=== PATIENT | female | born 1995 | race Caucasian/White ===

== ENCOUNTER 2019-01-23 10:42 | Day surgery (SDC) | payer BC ==
[2019-01-22 15:21] VITALS: BMI 26.6
[2019-01-22 15:58] LABS: Hemoglobin 12.3 g/dL (12.0-16.0); Mean Corpuscular HGB CONC 34.1 g/dL (32.0-36.0); Mean Corpuscular Hemoglobin 30.2 pg (27.0-31.0); Mean Corpuscular Volume 88.6 fL (78.0-98.0); Mean Platelet Volume 7.6 fL (7.4-10.4); Platelet Count 260 thou/uL (130-400); RBC Distribution Width 11.1 % (11.5-14.5); Red Blood Cell (RBC) Count 4.08 mill/uL (4.20-5.40); White Blood Cell (WBC) Count 5.9 thou/uL (4.8-10.8)
[2019-01-22 16:05] LABS: BHCG - Serum Negative (NEGATIVE); Pregs Control Background? CLEAR/WHITE (CLR/WHITE); Pregs Control Bar Appear? YES (CONTROL BAR)
[~2019-01-23 10:42] MED LIST: Dexamethasone 20 MG/5 ML VIAL ONE; Glycopyrrolate 0.2 MG/ML 5 ML SYRINGE ONE; Lidocaine 1% PF 5 ML VIAL ONE; Ondansetron PF 4 MG/2 ML Vial ONE; PROPOFOL 200 MG/20 ML VIAL ONE; Rocuronium Bromide 10 MG/ML (10ML VIAL) ONE; Vecuronium 10 MG VIAL ONE
[2019-01-23] MEDS ORDERED: CeleCOXIB 100 MG CAP ONE (12:52)
[2019-01-23] MEDS ORDERED: Famotidine/PF 20 mg/2ml Vial ONE (12:52)
[2019-01-23] MEDS ORDERED: Gabapentin 300 MG CAP ONE (12:52)
[2019-01-23] MEDS ORDERED: HYDROmorphone 0.5 MG/0.5 ML SYRINGE ONE (16:17)
[2019-01-23] MEDS ORDERED: Lidocaine 2% Jelly 5 ML TUBE ONE (16:17)
[2019-01-23] MEDS ORDERED: Midazolam HCl 2 mg/2 ml Vial ONE (16:17)
[2019-01-23] MEDS ORDERED: Fentanyl 100 MCG/2 ML VIAL ONE ×2 (16:17→19:00)
[2019-01-23] MEDS ORDERED: Bupivacaine 0.25% HCL 30 ML VIAL ONE (16:21)
[2019-01-23] MEDS ORDERED: Lidocaine 1% w/Epinephrine 1:100K 20 ML VIAL ONE (16:21)
[2019-01-23] MEDS ORDERED: Promethazine HCl 25 MG/ML VIAL ONE (18:40)
--- NOTE | 2019-01-24 14:15 | OP ---
DATE OF PROCEDURE: 01/23/2019 PREOPERATIVE DIAGNOSIS: Right ovarian mass. POSTOPERATIVE DIAGNOSIS: Right ovarian mass. PROCEDURE: Robotic-assisted right salpingo-oophorectomy and pelvic washings. RESIDENTIAL GLAZIER SURGEON: Ninfa Vazquez PA-C ESTIMATED BLOOD LOSS: 20 mL. COMPLICATIONS: None. PATHOLOGY: Right ovary and fallopian tube, pelvic washings for cytology. DRAINS: None. FINDINGS: A large mass off the right ovary up to the level of the umbilicus filling the pelvis. This mass contained clear fluid. There was one area of loculations within the mass during the cystectomy that contained a brownish-yellowish polyp-like tissue fragments with vascularity to it. Secondary to this concerning finding, a decision was made to proceed with ovary removal as opposed to cystectomy. There was no spillage of cyst contents into the abdomen or pelvis during the case. The contralateral ovary was normal as well as the fallopian tube and the uterus was also within normal limits. The upper abdomen was normal and the peritoneum was smooth. The appendix was visualized and within normal limits. DESCRIPTION OF PROCEDURE: The patient was taken to the operating room, where general anesthesia was obtained without difficulty. The patient was prepped and draped in a sterile fashion in a dorsal lithotomy position. A Rock catheter was placed in the bladder. A speculum was placed in the vagina and a single-tooth Hulka manipulator was placed into the cervix. The speculum was removed. Legs were placed in low lithotomy. Attention was turned to the abdomen. Anesthetic was infiltrated into the umbilicus and a 12-mm skin incision was made. The Veress needle was passed into the abdomen twice, noting an opening pressure of 0 mmHg. Pneumoperitoneum was obtained. The 12-mm trocar was advanced into the abdomen and confirmed placement with robotic camera. Right and left lower quadrant 8-mm robotic trocars were placed under direct visualization after infiltrating with anesthetic. A right upper quadrant 11 mm assistant director of public works port was also placed under direct visualization after infiltrating with anesthetic. The Trendelenburg was obtained and the robot was docked. The right robotic arm contained a monopolar scissor. The left robotic arm contained a fenestrated bipolar. Photo documentation was performed and a small incision was made in the cyst on the anterior aspect and the suction residential supervisor was placed in the incision and the fluid from inside the cyst was suctioned out. Pelvic washings were performed with normal saline. The cyst wall was then dissected off the ovarian capsule and using counter traction, the cyst was peeled away. This took approximately 30 minutes. During the cystectomy, a loculation was noted and inside this loculation was a tissue like polyp appearing piece of area that had some vascularity to it. This was felt to possibly represent an abnormality and a chance of LMP possibly. Therefore, decision was made to perform a right salpingo-oophorectomy. The utero-ovarian was then cauterized multiple times and incised with the scissors. The infundibulopelvic ligament was then elevated and clamped, cauterized with the fenestrated and incised with the scissors and these incisions were brought around the mesovarium with the cautery followed by incision and hemostasis was noted at that time. A 12-mm port was changed out for the 15-mm port in the umbilicus. A 15 mm bag was placed to the abdomen and the specimen was placed into the bag and the tissue was brought out of the umbilical incision in pieces and then examined and cyst wall was removed. There was no areas of calcifications. This was sent for final pathology. Irrigation was performed of the pelvis. Low pressure check was performed. Hemostasis was noted to be excellent. Tisseel was placed over the operative site and the robot was then docked. The fascia of the 15-mm port was closed with a 0 Vicryl in a running fashion. The skin was closed with 4-0 Monocryl in a subcuticular fashion. Dermabond was applied. The Hulka manipulator was taken out of the vagina and the cervix was hemostatic. All instruments removed out of the vagina. Rock catheter was discontinued. The patient tolerated the procedure well. Sponge and needle counts correct x2. The patient was taken to recovery in stable condition. The patient received Ancef 2 g prior to the procedure. Job ID: [id number]
== END 2019-01-23 21:30 | disposition home or self-care (01) ==
LOC: SDC 10:42
PROVIDERS: ATTEND Student in an Organized Health Care Education/Training Program
DX: N83.201 Unspecified ovarian cyst, right side (principal)
CPT/HCPCS: 84703; 85027; 86850; 86900; 86901; 87070; 87205; 88112; 88307; J0690; J1100; J1170; J2001; J2250; J2405; J2550; J2704; J3010; S0020; S0028